=== PATIENT | male | born 1990 | race African-American/Black ===

== ENCOUNTER 2016-07-04 14:11 | Emergency (ER) | payer MEDICAID ==
[~2016-07-04] VITALS: Ht 180.3 cm; Wt 63.5 kg
[2016-07-04 14:14] VITALS: BP 134/84
--- NOTE | 2016-07-04 14:45 | Emergency Room Report ---
History of Present Illness General Chief Complaint: General Complaint Source: Patient Present Illness HPI The patient presents with several complaints. He's increased his workout recently and has muscle pain in his chest and also in his lower back. Worse when he moves. He also feels spasms there. He claims that some over the counter medicines have made him feel worse and more anxious. The pain is also in his lower back and both legs. The sharp pain. Currently the pain is 5/5 - across his chest and bilateral lower back. He believes this started after eating at [employer]. Also is having insomnia and difficulty sleeping. He wakes up was shortness of breath during the night. He was seen at another emergency department and given a prescription for hydroxyzine. He states this medicine made him worse. He denies any stress but states that he has problems sleeping and wakes during the night. During these times he is anxious and gets somewhat short of breath. Will not state what he thinks about at these times. Denies SI or HI. After a bath several nights ago his left leg was numb for a short period of time. This got better. The right leg was normal at that time. This has not repeated since that time. Denies any fevers or chills, cough, NVD, dysuria/change in urine, rashes, change in vision, sore throat. He drives an [employer] car. Denies smoking alcohol or drugs. 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 Reviewed Nursing Documentation: PMH: Agreed, PSxH: Agreed Nursing Documentation-PMH Past Medical History: No Stated History Review of Systems All Other Systems: negative except mentioned in HPI Physical Exam Vital Signs Date Time Temp Pulse Resp B/P Pulse Ox O2 Delivery O2 Flow Rate FiO2 07/04/16 14:14 97.9 75 14 134/84 98 Room Air Sp02 EP Interpretation: reviewed, normal General Appearance: well appearing, no apparent distress, GCS 15, non-toxic, thin Head: normocephalic, atraumatic Eyes: bilateral eye EOMI, bilateral eye PERRL, bilateral eye normal inspection ENT: moist mucus membranes Neck: supple, other - Thyroid normal Respiratory: lungs clear, normal breath sounds, other - some chest wall tenderness (pectoralis muscles) Cardiovascular #1: regular rate, rhythm Cardiovascular #2: 2+ radial (R) Gastrointestinal: normal inspection, normal bowel sounds, non tender, no mass, non-distended, scaphoid Musculoskeletal: gait/station normal, normal range of motion, other - some tenderness in chest and lower back (muscular) Neurologic: alert, oriented x3, ring facer III-XII nml as tested, motor strength/tone normal, DTRs symmetric, sensory intact, cerebellar normal, normal gait Psychiatric: anxious, other - averts gaze most of time Skin: normal inspection, warm/dry Medical Decision Making Diagnostic Impression: Primary Impression: Myalgia Additional Impression: Anxiety ER Course Patient presents with multiple complaints after increasing his workout. Differential includes muscle strain, rhabdomyolysis, anxiety, somatization, electrolyte abnormality, thyroid dysfunction amongst others. I was offering to treat the patient with medication the Motrin and a few Ativan but he wants the testing done at this time. Will check CBC, CMP, urinalysis and drug screen. No risk factors or history for cardiac disease. Patient treated with ibuprofen here. Labs unremarkable. Complicated patient with multiple complaints. Discussed contribution of increased work out. No medical emergency at this time. Patient stable for outpatient observation and treatment. Laboratory Tests Test 07/04/16 14:45 White Blood Count 7.5 K/UL (4.8-10.8) Red Blood Count 4.90 M/UL (4.70-6.10) Hemoglobin 15.1 G/DL (14.2-18.0) Hematocrit 44.1 % (42.0-52.0) Mean Corpuscular Volume 90 FL (80-99) Mean Corpuscular Hemoglobin 30.9 PG (27.0-31.0) Mean Corpuscular Hemoglobin Concent 34.3 G/DL (32.0-36.0) Red Cell Distribution Width 10.9 % (11.6-14.8) L Platelet Count 327 K/UL (150-450) Mean Platelet Volume 8.2 FL (6.5-10.1) Neutrophils (%) (Auto) 59.1 % (45.0-75.0) Lymphocytes (%) (Auto) 31.0 % (20.0-45.0) Monocytes (%) (Auto) 7.0 % (1.0-10.0) Eosinophils (%) (Auto) 0.7 % (0.0-3.0) Basophils (%) (Auto) 2.2 % (0.0-2.0) H Urine Color Pale yellow Urine Appearance Clear Urine pH 6.5 (4.5-8.0) Urine Specific [place] 1.010 (1.005-1.035) Urine Protein Negative (NEGATIVE) Urine Glucose (UA) Negative (NEGATIVE) Urine Ketones Negative (NEGATIVE) Urine Occult Blood Negative (NEGATIVE) Urine Nitrite Negative (NEGATIVE) Urine Bilirubin Negative (NEGATIVE) Urine Urobilinogen Normal MG/DL (0.0-1.0) Urine Leukocyte Esterase Negative (NEGATIVE) Sodium Level 137 mEQ/L (135-145) Potassium Level 4.0 mEQ/L (3.4-4.9) Chloride Level 95 mEQ/L (98-107) L Carbon Dioxide Level 26 mEQ/L (20-30) Anion Gap 16 (5-15) H Blood Urea Nitrogen 11 mg/dL (7-23) Creatinine 0.9 mg/dL (0.7-1.2) Estimate Glomerular Filtration Rate > 60 mL/min (>60) Glucose Level 96 mg/dL (74-106) Calcium Level 9.5 mg/dL (8.6-10.2) Total Bilirubin 0.8 mg/dL (0.0-1.2) Aspartate Amino Transferase (AST) 15 U/L (5-40) Alanine Aminotransferase (ALT) 9 U/L (3-41) Alkaline Phosphatase 62 U/L (40-129) Total Creatine Kinase 110 U/L (38-174) Total Protein 7.4 g/dL (6.6-8.7) Albumin 4.7 g/dL (3.5-5.2) Globulin 2.7 g/dL Albumin/Globulin Ratio 1.7 (1.0-2.7) Thyroid Stimulating Hormone (TSH) 0.589 uIU/mL (0.300-4.500) Urine Opiates Screen Negative (NEGATIVE) Urine Barbiturates Screen Negative (NEGATIVE) Phencyclidine (PCP) Screen Negative (NEGATIVE) Urine Amphetamines Screen Negative (NEGATIVE) Urine Benzodiazepines Screen Negative (NEGATIVE) Urine Cocaine Screen Negative (NEGATIVE) Urine Marijuana (THC) Screen Negative (NEGATIVE) Status: improved Disposition: HOME, SELF-CARE Condition: Stable Scripts Lorazepam* (ATIVAN*) 0.5 Mg Tablet 0.5 MG ORAL THREE TIMES A DAY, #6 TAB Prov: Paco Howell M.D. 07/04/16 Ibuprofen* (MOTRIN*) 600 Mg Tablet 600 MG ORAL Q6H Y for For Pain, #16 TAB Prov: Paco Howell M.D. 07/04/16 Paco Howell M.D. Jul 04, 2016 14:45
[2016-07-04 14:52] LABS: APPEARANCE,URINE CLEAR; KETONES,URINE NEGATIVE (NEGATIVE); LEUKOCYTE ESTERASE ,URINE NEGATIVE (NEGATIVE); NITRITE,URINE NEGATIVE (NEGATIVE); PH,URINE 6.5 (4.5-8.0); PROTEIN,URINE NEGATIVE (NEGATIVE); UROBILINOGEN,URINE NORMAL MG/DL (0.0-1.0)
[2016-07-04 14:53] LABS: BASOPHILS % (AUTO) 2.2 % (0.0-2.0); EOSINOPHILS % (AUTO) 0.7 % (0.0-3.0); MEAN CORPUSCULAR HEMOGLOBIN 30.9 PG (27.0-31.0); MEAN CORPUSCULAR HGB CONC 34.3 G/DL (32.0-36.0); MEAN CORPUSCULAR VOLUME 90 FL (80-99); MEAN PLATELET VOLUME 8.2 FL (6.5-10.1); NEUTROPHILS % (AUTO) 59.1 % (45.0-75.0); PLATELET COUNT 327 K/UL (150-450); RED CELL DISTRIBUTION WIDTH 10.9 % (11.6-14.8); WHITE BLOOD COUNT 7.5 K/UL (4.8-10.8)
[2016-07-04 15:11] LABS: ALANINE AMINOTRANSFERASE 9 U/L (3-41); ALBUMIN/GLOBULIN RATIO 1.7 (1.0-2.7); ANION GAP 16 (5-15); ASPARTATE AMINO TRANSFERASE 15 U/L (5-40); CALCIUM 9.5 mg/dL (8.6-10.2); CARBON DIOXIDE 26 mEQ/L (20-30); CHLORIDE 95 mEQ/L (98-107); CREATININE 0.9 mg/dL (0.7-1.2); GLOMERULAR FILTRATION RATE > 60 mL/min (>60); HEMOLYSIS 8; SODIUM 137 mEQ/L (135-145); TOTAL PROTEIN 7.4 g/dL (6.6-8.7)
[2016-07-04 15:21] LABS: THYROID STIMULATING HORMONE 0.589 uIU/mL (0.300-4.500)
[2016-07-04] MEDS ORDERED: ATIVAN0.5 MG ORAL (16:19)
[2016-07-04] MEDS ORDERED: IBUPROFEN600 MG ORAL (16:19)
== END 2016-07-04 16:30 | disposition home or self-care (01) ==
LOC: EMR 14:55
DX: M79.1 Myalgia (principal); F41.9 Anxiety disorder, unspecified; Z83.3 Family history of diabetes mellitus
CPT/HCPCS: 36415; 80053; 80300; 81003; 82550; 84443; 85025; 99284

== ENCOUNTER 2016-07-23 23:41 | Emergency (ER) | payer MEDICAID ==
[~2016-07-23] VITALS: Ht 180.3 cm; Wt 63.5 kg
[~2016-07-23 23:41] MED LIST: ATIVAN0.5 MG ORAL; IBUPROFEN600 MG ORAL
[2016-07-24 00:10] VITALS: BP 133/88
[2016-07-24] MEDS ORDERED: AMITRIPTYLINE25 MG ORAL (00:18)
--- NOTE | 2016-07-24 00:19 | Emergency Room Report ---
History of Present Illness General Chief Complaint: General Complaint Source: Patient Present Illness HPI Is a 26-year-old male presents with multiple complaints. Initially he said that he has trouble sleeping. Said he sleep but wake up easily and he can't go back to sleep. Most of the time, he complaining of abdominal issues. Said he felt full. However, has not lost any weight. He was here last month for the same thing. Labs are unremarkable. He saw a primary care DrDianelsy and had another set of blood done that was unremarkable. Denies any pain. No vomiting or diarrhea. Denies drugs or alcohol. Denies any psychiatric issue. Allergies: Coded Allergies: No Known Allergies (Unverified , 07/04/16) Patient History Past Medical History: none, see triage record, old chart reviewed Past Surgical History: none Pertinent Family History: none Social History: Denies: smoking Immunizations: other Reviewed Nursing Documentation: PMH: Agreed, PSxH: Agreed Nursing Documentation-PM Past Medical History: No Stated History Review of Systems Eye: Denies: blurred vision, eye pain ENT: Denies: ear pain, nose congestion, throat swelling Respiratory: Denies: cough, shortness of breath Cardiovascular: Denies: chest pain, palpitations Gastrointestinal: Denies: abdominal pain, diarrhea, nausea, vomiting Musculoskeletal: Denies: back pain, joint pain Skin: Denies: rash Neurological: Denies: headache, numbness Endocrine: Denies: increased thirst, increased urine Hematologic/Lymphatic: Denies: easy bruising All Other Systems: negative except mentioned in HPI Physical Exam Vital Signs Date Time Temp Pulse Resp B/P Pulse Ox O2 Delivery O2 Flow Rate FiO2 07/23/16 23:53 98.2 75 18 133/88 99 Room Air vitals normal Sp02 EP Interpretation: reviewed, normal General Appearance: well appearing, no apparent distress, alert Head: normocephalic, atraumatic Eyes: bilateral eye EOMI, bilateral eye PERRL ENT: hearing grossly normal, normal pharynx Neck: full range of motion, supple, no meningismus Respiratory: chest non-tender, lungs clear, normal breath sounds Cardiovascular #1: regular rate, rhythm, no murmur Gastrointestinal: normal bowel sounds, non tender, no mass, no organomegaly, no bruit, non-distended Musculoskeletal: back normal, gait/station normal, normal range of motion Psychiatric: mood/affect normal Skin: warm/dry Medical Decision Making Diagnostic Impression: Primary Impression: Insomnia Qualified Codes: G47.00 - Insomnia, unspecified Additional Impression: Somatization disorder ER Course Patient with multiple complaints. He probably has a psychiatric issue. He has no criteria for 5150. Not suicidal or homicidal. No delusion or hallucination. We'll discharge home. May benefit from psychiatric referral. Last Vital Signs Date Time Temp Pulse Resp B/P Pulse Ox O2 Delivery O2 Flow Rate FiO2 07/23/16 23:53 98.2 75 18 133/88 99 Room Air Status: improved Disposition: HOME, SELF-CARE Condition: Stable Scripts Amitriptyline HCl (ELAVIL*) 25 Mg Tablet 25 MG ORAL BEDTIME, #30 TAB Prov: DAYLIN CUENCA M.D. 07/24/16 Additional Instructions: Followup your Dr. in 2-3 days. You may benefit from referral to see a psychiatrist. Return if symptom worsen. DAYLIN CUENCA M.D. Jul 24, 2016 00:19
[2016-07-24 00:20] VITALS: BP 133/88
== END 2016-07-24 00:20 | disposition home or self-care (01) ==
LOC: EMR 07-24 00:19
DX: G47.00 Insomnia, unspecified (principal); F45.9 Somatoform disorder, unspecified
CPT/HCPCS: 99283

== ENCOUNTER 2016-07-28 11:53 | Emergency (ER) | payer MEDICAID ==
[~2016-07-28] VITALS: Ht 180.3 cm; Wt 63.5 kg
[~2016-07-28 11:53] MED LIST changes: +AMITRIPTYLINE25 MG ORAL
[2016-07-28] MEDS ORDERED: NKM (12:15)
[2016-07-28 12:18] VITALS: BP 120/64
[2016-07-28 12:57] LABS: BASOPHILS % (AUTO) 2.6 % (0.0-2.0); EOSINOPHILS % (AUTO) 1.3 % (0.0-3.0); LYMPHOCYTES % (AUTO) 30.2 % (20.0-45.0); MEAN CORPUSCULAR HEMOGLOBIN 30.5 PG (27.0-31.0); MEAN CORPUSCULAR HGB CONC 33.1 G/DL (32.0-36.0); MEAN CORPUSCULAR VOLUME 92 FL (80-99); MEAN PLATELET VOLUME 10.1 FL (6.5-10.1); MONOCYTES % (AUTO) 6.3 % (1.0-10.0); NEUTROPHILS % (AUTO) 59.6 % (45.0-75.0); PLATELET COUNT 232 K/UL (150-450); RED BLOOD COUNT 5.04 M/UL (4.70-6.10); RED CELL DISTRIBUTION WIDTH 11.1 % (11.6-14.8); WHITE BLOOD COUNT 4.8 K/UL (4.8-10.8)
[2016-07-28 13:07] LABS: ANION GAP 15 (5-15); CALCIUM 9.4 mg/dL (8.6-10.2); CARBON DIOXIDE 26 mEQ/L (20-30); CHLORIDE 97 mEQ/L (98-107); CREATININE 0.9 mg/dL (0.7-1.2); GLOMERULAR FILTRATION RATE > 60 mL/min (>60); HEMOLYSIS 8; SODIUM 138 mEQ/L (135-145)
[2016-07-28 13:39] VITALS: BP 125/76
--- NOTE | 2016-07-28 13:50 | Emergency Room Report ---
History of Present Illness General Chief Complaint: General Complaint Source: Patient Present Illness HPI 26-year-old male presents emergency department stating that he had an episode of feeling lightheaded yesterday but resolved on its own. Patient reports decrease in appetite and states that he has not been drinking as much water denies nausea vomiting. Patient denies palpitations, shortness of breath, syncope, recent trauma or fall. Patient denies recent head injury. Patient denies history of anxiety or thyroid dysfunction patient denies cardiac disorder. Patient does report that a few of his labs from his doctor's office recently were abnormal and brought them with him. Patient reports weight loss estimated at 12 pounds over the course of 2 months. Denies night sweats or chills, denies blood in stool, or black stools. Denies CP, Palpitations, LOC, AMS, dizziness, Changes in Vision, Sensation, paresthesias, or a sudden severe headache. Allergies: Coded Allergies: No Known Allergies (Unverified , 07/04/16) Patient History Past Medical History: see triage record Past Surgical History: none Pertinent Family History: none Immunizations: UTD Reviewed Nursing Documentation: PMH: Agreed, PSxH: Agreed Nursing Documentation-PMH Past Medical History: No Stated History Review of Systems All Other Systems: negative except mentioned in HPI Physical Exam Vital Signs Date Time Temp Pulse Resp B/P Pulse Ox O2 Delivery O2 Flow Rate FiO2 07/28/16 12:09 98.8 82 16 120/64 98 Room Air Sp02 EP Interpretation: reviewed, normal General Appearance: no apparent distress, alert, GCS 15, non-toxic Head: normocephalic, atraumatic Eyes: bilateral eye EOMI, bilateral eye PERRL, bilateral eye normal inspection ENT: hearing grossly normal, normal pharynx, no angioedema, normal voice, TMs + canals normal, uvula midline Neck: full range of motion, no meningismus, no bony tend, supple/symm/no masses Respiratory: chest non-tender, lungs clear, normal breath sounds, speaking full sentences Cardiovascular #1: regular rate, rhythm, no edema Cardiovascular #2: 2+ radial (R), 2+ radial (L) Gastrointestinal: non tender, soft, no guarding, no rebound Rectal: deferred Genitourinary: normal inspection, no CVA tenderness Musculoskeletal: back normal, gait/station normal, normal range of motion, non- tender, no calf tenderness Neurologic: alert, oriented x3, responsive, motor strength/tone normal, sensory intact, speech normal Psychiatric: judgement/insight normal, memory normal, mood/affect normal, no suicidal/homicidal ideation Skin: normal color, no rash, warm/dry, well hydrated Lymphatic: no adenopathy Medical Decision Making PA Attestation Dr. Kelly is my supervising Physician whom patient management has been discussed with. Diagnostic Impression: Primary Impression: Dizziness, nonspecific ER Course 26-year-old male presents emergency department stating that he had an episode of feeling lightheaded yesterday but resolved on its own. Patient reports decrease in appetite and states that he has not been drinking as much water denies nausea vomiting. Patient denies palpitations, shortness of breath, syncope, recent trauma or fall. Patient denies recent head injury. Patient denies history of anxiety or thyroid dysfunction patient denies cardiac disorder. Patient does report that a few of his labs from his doctor's office recently were abnormal and brought them with him. Patient reports weight loss estimated at 12 pounds over the course of 2 months. Denies night sweats or chills, denies blood in stool, or black stools. Ddx considered but are not limited to Mnire's, BPPV, anxiety, palpitations, hypovolemia, dehydration, cardiac cause. Vital signs: are WNL, pt. is afebrile Recent lab work shows mildly decreased TSH. H&PE are most consistent with :possible thyroid dysfunction will r/o dehydration. ORDERS: - CBC: unremarkable no evidence of anemia -CMP: unremarkable no evidence to suggest dehydration ED INTERVENTIONS: -D/W pt. to follow up with PCP for further eval of TSH recommended free T3/T4 levels. DISCHARGE: At this time pt. is stable for d/c to home. Will provide printed patient care instructions, and any necessary prescriptions. Care plan and follow up instructions have been discussed with the patient prior to discharge. Labs Test 07/28/16 12:50 White Blood Count 4.8 K/UL (4.8-10.8) Red Blood Count 5.04 M/UL (4.70-6.10) Hemoglobin 15.4 G/DL (14.2-18.0) Hematocrit 46.4 % (42.0-52.0) Mean Corpuscular Volume 92 FL (80-99) Mean Corpuscular Hemoglobin 30.5 PG (27.0-31.0) Mean Corpuscular Hemoglobin Concent 33.1 G/DL (32.0-36.0) Red Cell Distribution Width 11.1 % (11.6-14.8) Platelet Count 232 K/UL (150-450) Mean Platelet Volume 10.1 FL (6.5-10.1) Neutrophils (%) (Auto) 59.6 % (45.0-75.0) Lymphocytes (%) (Auto) 30.2 % (20.0-45.0) Monocytes (%) (Auto) 6.3 % (1.0-10.0) Eosinophils (%) (Auto) 1.3 % (0.0-3.0) Basophils (%) (Auto) 2.6 % (0.0-2.0) Sodium Level 138 mEQ/L (135-145) Potassium Level 4.0 mEQ/L (3.4-4.9) Chloride Level 97 mEQ/L (98-107) Carbon Dioxide Level 26 mEQ/L (20-30) Anion Gap 15 (5-15) Blood Urea Nitrogen 12 mg/dL (7-23) Creatinine 0.9 mg/dL (0.7-1.2) Estimat Glomerular Filtration Rate > 60 mL/min (>60) Glucose Level 87 mg/dL (74-106) Calcium Level 9.4 mg/dL (8.6-10.2) Last Vital Signs Date Time Temp Pulse Resp B/P Pulse Ox O2 Delivery O2 Flow Rate FiO2 07/28/16 13:39 98.8 79 16 125/76 98 Room Air Disposition: HOME, SELF-CARE Condition: Stable Referrals: NOT CHOSEN IPA/MD,REFERRING (PCP) Patient Instructions: Dizziness, Thyroid-Stimulating Hormone Test Additional Instructions: Take medications as directed. Follow up with PCP in 3-5 days Return sooner to ED if new symptoms occur, or current symptoms become worse. - Please note that this Emergency Department Report was dictated using [employer] technology software, occasionally this can lead to erroneous entry secondary to interpretation by the dictation equipment. Tania Whitley Jul 28, 2016 13:50
== END 2016-07-28 13:52 | disposition home or self-care (01) ==
LOC: EMR 13:13
DX: R42 Dizziness and giddiness (principal)
CPT/HCPCS: 36415; 80048; 85025; 99281

== ENCOUNTER 2016-09-09 18:36 | Emergency (ER) | payer MEDICAID ==
[~2016-09-09] VITALS: Ht 180.3 cm; Wt 62.6 kg
[~2016-09-09 18:36] MED LIST changes: +NKM
[2016-09-09] MEDS ORDERED: AMOXICILLIN500 MG ORAL (19:33)
[2016-09-09 19:56] VITALS: BP_SYST 130; BP_SYST 132; BP_DIAS 71; BP_DIAS 74
--- NOTE | 2016-09-09 20:27 | Emergency Room Report ---
History of Present Illness General Chief Complaint: General Complaint Source: Patient Present Illness HPI The patient is a 26-year-old male presenting for sore throat and difficulty swallowing for the past 2 weeks. He states that he has also had a minor dry cough. He denies any sick contacts or recent travel. He describes pain as a 3/ 10 dull ache to the back of the throat and is worse when he swallows. Pain does not radiate. He denies choking on food or aspirating. He denies any other symptom such as weight loss, N, V, F, chills, SOB, rash, fatigue. Allergies: Coded Allergies: No Known Allergies (Unverified , 07/04/16) Patient History Past Medical History: see triage record Pertinent Family History: none Reviewed Nursing Documentation: PMH: Agreed, PSxH: Agreed Nursing Documentation-PMH Past Medical History: No Stated History Review of Systems All Other Systems: negative except mentioned in HPI Physical Exam Vital Signs Date Time Temp Pulse Resp B/P Pulse Ox O2 Delivery O2 Flow Rate FiO2 09/09/16 18:50 98.1 90 20 130/71 100 Room Air Sp02 EP Interpretation: reviewed, normal General Appearance: no apparent distress, alert, GCS 15, non-toxic Head: normocephalic, atraumatic Eyes: bilateral eye PERRL, bilateral eye normal inspection ENT: hearing grossly normal, no angioedema, normal voice, uvula midline, tonsillar swelling, pharyngeal erythema Neck: normal inspection, full range of motion, supple, thyroid normal, no bony tend, supple/symm/no masses Respiratory: chest non-tender, lungs clear, normal breath sounds, no wheezing, speaking full sentences Musculoskeletal: back normal, gait/station normal, normal range of motion, non- tender Neurologic: alert, oriented x3, responsive, motor strength/tone normal, sensory intact, speech normal Psychiatric: judgement/insight normal, memory normal, mood/affect normal, no suicidal/homicidal ideation Skin: normal color, no rash, warm/dry, well hydrated Lymphatic: adenopathy - cervical Medical Decision Making PA Attestation Dr. Kelly is my supervising physician. Patient management was discussed with my supervising physician Diagnostic Impression: Primary Impression: Pharyngitis, acute Qualified Codes: J02.9 - Acute pharyngitis, unspecified ER Course The patient is a 26-year-old male presenting for sore throat and difficulty swallowing for the past 2 weeks Differential diagnosis include but not limited to pharyngitis, sinusitis, AOM, bronchitis, PNA, thyroiditis, dysmotility Physical exam: Vitals within normal limits. Afebrile. No apparent distress HEENT exam: There is bilateral tonsillar edema, erythema. Uvula midline. Moist mucous membranes. There is bilateral cervical lymphadenopathy. Lungs are clear to auscultation bilaterally Skin is warm and dry. No rash The patient will be discharged home with a prescription for amoxicillin and is given ER precautions. Patient will followup with primary care Last Vital Signs Date Time Temp Pulse Resp B/P Pulse Ox O2 Delivery O2 Flow Rate FiO2 09/09/16 19:56 98.1 20 130/71 100 Room Air 09/09/16 19:56 86 Status: improved Disposition: HOME, SELF-CARE Condition: Improved Scripts Amoxicillin* (AMOXIL*) 500 Mg Capsule 500 MG ORAL Q12HR, #20 CAP Prov: MONSERRAT CALLAHAN 09/09/16 Referrals: NOT CHOSEN IPA/MD,REFERRING (PCP) Patient Instructions: Pharyngitis Additional Instructions: I discussed my findings with the patient. All questions and concerns have been answered. Treatment and medication compliance have been addressed. I advised the patient that they need to follow up with PMD in 3-5 days. Return to ED if pain remains or worsens, cough worsens or remains, you notice blood in your sputum, you notice wheezing, you experience a fever, or if needed for any reason. Patient verbalized understanding of discharge instructions. MONSERRAT CALLAHAN Sep 09, 2016 20:27
== END 2016-09-09 19:57 | disposition home or self-care (01) ==
LOC: EMR 19:21
DX: J02.9 Acute pharyngitis, unspecified (principal)
CPT/HCPCS: 99283

== ENCOUNTER 2016-09-11 13:02 | Emergency (ER) | payer MEDICAID ==
[~2016-09-11] VITALS: Ht 182.9 cm; Wt 54.4 kg
[~2016-09-11 13:02] MED LIST changes: +AMOXICILLIN500 MG ORAL
[2016-09-11] MEDS ORDERED: Lidocaine 1% MPF 10mg/ml 5ml IM ONE (13:30)
--- NOTE | 2016-09-11 14:12 | Emergency Room Report ---
History of Present Illness General Chief Complaint: Skin Rash/Abscess Source: Patient Present Illness HPI 26 YO Male presents to the ED c/o pain, swelling, and erythema of right buttock, and right thigh 10/10 in severity. pt. was seen as another ED two days ago for abscess and was prescribed amoxicillin. pt. states symptoms continue to progress. Patient denies history of immunocompromise or past medical history.pt recently had circumcision performed. Patient denies nausea, vomiting, abdominal pain, itching or rashes. Pt. states he is wearing a diaper, denies incontinence, or pain in the area. Denies CP, Palpitations, LOC, AMS, dizziness, Changes in Vision, Sensation, paresthesias, or a sudden severe headache. pt. states his symptoms began approximately 1 week ago. Allergies: Coded Allergies: No Known Allergies (Unverified , 07/04/16) Patient History Past Medical History: see triage record Past Surgical History: none Pertinent Family History: none Immunizations: UTD Reviewed Nursing Documentation: PMH: Agreed, PSxH: Agreed Nursing Documentation-PMH Past Medical History: No Stated History Review of Systems All Other Systems: negative except mentioned in HPI Physical Exam Vital Signs Date Time Temp Pulse Resp B/P Pulse Ox O2 Delivery O2 Flow Rate FiO2 09/11/16 13:16 98.4 78 16 120/80 99 Room Air Sp02 EP Interpretation: reviewed, normal General Appearance: no apparent distress, alert, GCS 15, non-toxic Head: normocephalic, atraumatic Eyes: bilateral eye PERRL, bilateral eye normal inspection ENT: hearing grossly normal, normal pharynx, no angioedema, normal voice Neck: full range of motion, supple/symm/no masses Respiratory: lungs clear, normal breath sounds, speaking full sentences Cardiovascular #1: regular rate, rhythm, no edema Rectal: deferred Genitourinary: deferred - pt. currently wearign a diaper. Musculoskeletal: back normal, gait/station normal, normal range of motion, other, tender - TTP to the right buttock where abscess is located, no bony ttp, pt. also has ttp to medial right thigh. Neurologic: alert, oriented x3, responsive, motor strength/tone normal, sensory intact, normal gait, speech normal Psychiatric: judgement/insight normal, memory normal, mood/affect normal, no suicidal/homicidal ideation Skin: no rash, warm/dry, well hydrated, other - abscess on the right buttock is 2.5cm indurated with fluctuance palpated. The abscess on thigh is less than 1cm no fluctuance palpated Lymphatic: no adenopathy Procedures Incision and Drainage Incision and Drainage : Consent: Verbal Site: right buttock Blade Size: 11 I & D Procedure: betadine prep Wound Location: other - right buttock Wound's Depth, Shape: into muscle Wound Length (cm): 1 Wound Explored: contaminated - thick purulent drainage was expressed from the incision Irrigated w/ Saline (ccs): 30 Anesthesia: Lidocaine w/ Epi Volume Anesthetic (ccs): 3 Splint Applied?: No Sling Applied?: No Patient Tolerated: Well Complications: None Medical Decision Making PA Attestation Dr. Watts is my supervising Physician whom patient management has been discussed with. Diagnostic Impression: Primary Impression: Abscess ER Course Pt. presents to the ED c/o pain, swelling, and erythema of right buttock, and right thigh 10/10 in severity. pt recently had circumcision performed. pt. was seen as another ED two days ago for abscess and was prescribed amoxicillin... pt. states symptoms continue to progress. Ddx considered but are not limited to cellulitis, abscess, cystic acne, necrotizing fasciitis, insect bite. Vital signs: are WNL, pt. is afebrile H&PE are most consistent with Abscess of multiple sites. abscess on the right buttock is 2.5cm indurated with fluctuance palpated. The abscess on thigh is less than 1cm no fluctuance palpated will defer drainage. ORDERS: none required at this time, the diagnosis is clinical. ED INTERVENTIONS: -I & D. - Tetanus DISCHARGE: At this time pt. is stable for d/c to home. Will provide printed patient care instructions, and any necessary prescriptions. Care plan and follow up instructions have been discussed with the patient prior to discharge. Last Vital Signs Date Time Temp Pulse Resp B/P Pulse Ox O2 Delivery O2 Flow Rate FiO2 09/11/16 13:16 98.4 78 16 120/80 99 Room Air Disposition: HOME, SELF-CARE Condition: Stable Scripts Ibuprofen* (MOTRIN*) 400 Mg Tablet 400 MG ORAL THREE TIMES A DAY, #30 TAB 0 Refills Prov: Tania Whitley.Felipe 09/11/16 Hydrocodone Bit/Acetaminophen 5-325* (NORCO 5-325 TABLET*) 1 Each Tablet 1 TAB ORAL Q6HR Y for For Pain, #9 TAB Prov: Tania Whitley 09/11/16 Doxycycline Hyclate* (VIBRAMYCIN*) 100 Mg Capsule 100 MG ORAL EVERY 12 HOURS for 7 Days, #14 CAP 0 Refills Prov: Tania Whitley 09/11/16 Referrals: NOT CHOSEN IPA/MD,REFERRING (PCP) Patient Instructions: Abscess Additional Instructions: Take medications as directed. Follow up with PCP in 3-5 days Return sooner to ED if new symptoms occur, or current symptoms become worse. Do not drink alcohol, drive, or operate heavy machinery while taking [place] as this may cause drowsiness. - Please note that this Emergency Department Report was dictated using [employer] Technologies[employer]ician aide technology software, occasionally this can lead to erroneous entry secondary to interpretation by the dictation equipment. Tania Whitley Sep 11, 2016 14:12
[2016-09-11] MEDS ORDERED: VIBRAMYCIN100 MG ORAL (14:16)
[2016-09-11] MEDS ORDERED: NORCO 5-325 TA1 EAC1 ORAL (14:16)
[2016-09-11] MEDS ORDERED: IBUPROFEN400 MG ORAL (14:34)
[2016-09-11 14:42] VITALS: BP 116/81
== END 2016-09-11 14:44 | disposition home or self-care (01) ==
LOC: EMR 13:47
DX: L02.31 Cutaneous abscess of buttock (principal)
CPT/HCPCS: 10060

== ENCOUNTER 2016-09-13 19:45 | Emergency (ER) | payer MEDICAID ==
[~2016-09-13] VITALS: Ht 180.3 cm; Wt 63.0 kg
[~2016-09-13 19:45] MED LIST changes: +IBUPROFEN400 MG ORAL; +NORCO 5-325 TA1 EAC1 ORAL; +VIBRAMYCIN100 MG ORAL
[2016-09-13] MEDS ORDERED: AMOXIL250 MG ORAL (20:27)
[2016-09-13 20:35] VITALS: BP 128/82
[2016-09-13 20:58] VITALS: BP 128/82
--- NOTE | 2016-09-14 21:46 | Emergency Room Report ---
History of Present Illness General Chief Complaint: Back Pain-No Injury Source: Patient Present Illness HPI Patient present with complaints of right upper back pain Initially the report states ongoing for the past few days however the patient also is complaining of weight loss Patient reports that he try to gain weight however is not able to Pain in the upper back is in between the shoulder blade and the spinal cord in the right side Denies any fall or trauma denies any chest pain or shortness of breath denies any rash Denies any low back pain Allergies: Coded Allergies: No Known Allergies (Unverified , 09/13/16) Patient History Past Medical History: see triage record Pertinent Family History: none Reviewed Nursing Documentation: PMH: Agreed, PSxH: Agreed Nursing Documentation-PMH Past Medical History: No Stated History Review of Systems All Other Systems: negative except mentioned in HPI Physical Exam Vital Signs Date Time Temp Pulse Resp B/P Pulse Ox O2 Delivery O2 Flow Rate FiO2 09/13/16 20:23 97.3 81 16 131/84 99 Room Air Sp02 EP Interpretation: reviewed, normal General Appearance: well appearing, no apparent distress Head: normocephalic, atraumatic Eyes: bilateral eye EOMI, bilateral eye PERRL ENT: hearing grossly normal, normal pharynx, TMs + canals normal, uvula midline Neck: full range of motion, supple, no meningismus, no bony tend Respiratory: lungs clear, normal breath sounds, no rhonchi, no respiratory distress, no retraction, no accessory muscle use Cardiovascular #1: normal peripheral pulses, regular rate, rhythm, no edema, no gallop, no JVD, no murmur Gastrointestinal: normal bowel sounds, non tender, soft, no mass, no organomegaly, non-distended, no guarding, no hernia, no pulsatile mass, no rebound Genitourinary: no CVA tenderness Musculoskeletal: other - Patient had pinpoint discomfort on the rhomboid area on the right side, mid scapular line, just lateral to the midline of thoracic spine, no obvious masses were palpated Neurologic: oriented x3, responsive, dial maker III-XII nml as tested, motor strength/ tone normal, sensory intact Psychiatric: mood/affect normal Skin: normal color, no rash, warm/dry, palpation normal Lymphatic: normal inspection, no adenopathy Medical Decision Making Diagnostic Impression: Primary Impression: Back pain ER Course While the patient was here he did go over Significant amount of recent workup Patient shows thyroid studies along with blood work At this time differentials such as carcinoma any to be considered however given the patient's age and presentation did not feel emergency imaging was appropriate And the patient is stable for close outpatient followup Last Vital Signs Date Time Temp Pulse Resp B/P Pulse Ox O2 Delivery O2 Flow Rate FiO2 09/13/16 20:58 97.3 76 16 128/82 99 Room Air Status: unchanged Disposition: HOME, SELF-CARE Condition: Stable Referrals: NOT CHOSEN IPA/MD,REFERRING (PCP) Patient Instructions: Back Pain, Adult Additional Instructions: It appears that your physician is ordering the appropriate testing Including the thyroid studies and HIV studies At this time followup with endocrinology might be the best followup for your weight loss The back pain that you have at this time appears to be musculoskeletal, and localized to the right side rhomboid region JOSE ANTONIO MIN D.O. Sep 14, 2016 21:46
== END 2016-09-13 20:58 | disposition home or self-care (01) ==
LOC: EMR 20:46
DX: M54.9 Dorsalgia, unspecified (principal); R63.4 Abnormal weight loss; Z68.1 Body mass index [BMI] 19.9 or less, adult
CPT/HCPCS: 99282

== ENCOUNTER 2016-09-22 19:19 | Emergency (ER) | payer MEDICAID ==
[~2016-09-22] VITALS: Ht 180.3 cm; Wt 61.7 kg
[~2016-09-22 19:19] MED LIST changes: +AMOXIL250 MG ORAL
[2016-09-22] MEDS ORDERED: NKM (19:35)
[2016-09-22] MEDS ORDERED: XANAX1 MG ORAL (20:30)
[2016-09-22 20:36] VITALS: BP 124/82
[2016-09-22 20:37] VITALS: BP 124/82
--- NOTE | 2016-09-22 21:33 | Emergency Room Report ---
History of Present Illness General Chief Complaint: General Complaint Source: Patient Present Illness [facility] The patient is a 26-year-old male who denies any medical history presenting for insomnia. The patient states that he has been feeling various strange symptoms including a cold sensation to the left chest, difficulty swallowing, a rash that disappears within minutes, and difficulty sleeping. He has been seen in this emergency department for similar symptoms in the past. He denies any pain. He denies any other symptoms including N, V, F, chills, SOB, CP, CURTIS, neck pain/stiffness Allergies: Coded Allergies: No Known Allergies (Unverified , 09/22/16) Patient History Past Medical History: see triage record Pertinent Family History: none Reviewed Nursing Documentation: PMH: Agreed, PSxH: Agreed Nursing Documentation-PMH Past Medical History: No Stated History Review of Systems All Other Systems: negative except mentioned in HPI Physical Exam Vital Signs Date Time Temp Pulse Resp B/P Pulse Ox O2 Delivery O2 Flow Rate FiO2 09/22/16 19:28 97.2 81 16 124/82 99 Room Air Sp02 EP Interpretation: reviewed, normal General Appearance: no apparent distress, alert, GCS 15, non-toxic Head: normocephalic, atraumatic Eyes: bilateral eye PERRL, bilateral eye normal inspection ENT: hearing grossly normal, normal pharynx, no angioedema, normal voice Neck: full range of motion, supple/symm/no masses Respiratory: chest non-tender, lungs clear, normal breath sounds, speaking full sentences Cardiovascular #1: regular rate, rhythm, no edema Cardiovascular #2: 2+ carotid (R), 2+ carotid (L), 2+ radial (R), 2+ radial (L) , 2+ dorsalis pedis (R), 2+ dorsalis pedis (L) Gastrointestinal: normal bowel sounds, non tender, soft, non-distended, no guarding, no rebound Rectal: deferred Genitourinary: normal inspection, no CVA tenderness Musculoskeletal: back normal, gait/station normal, normal range of motion, non- tender, calf tenderness Neurologic: alert, oriented x3, responsive, motor strength/tone normal, sensory intact, speech normal Psychiatric: memory normal, other - Thoughts are scattered Reflexes: 3+ bicep (R), 3+ bicep (L), 3+ tricep (R), 3+ tricep (L), 3+ knee (R) , 3+ knee (L) Skin: normal color, no rash, warm/dry, well hydrated Lymphatic: no adenopathy Medical Decision Making PA Attestation Dr. Burt is my supervising physician. Patient management was discussed with my supervising physician Diagnostic Impression: Primary Impression: Anxiety ER Course The patient is a 26-year-old male who denies any medical history presenting for insomnia Differential diagnoses considered but not limited to suicidal ideation, homicidal ideation, depression, anxiety, insomnia PE: No apparent distress. A&Ox4 PERRL. EOMI. Oropharynx is patent. No edema. RRR. No MRG Lungs CTA bilat Abdomen: Normal appearance. Non distended. No ecchymosis. Normal BS. Non TTP. No McBurney point tenderness. No guarding. Skin is warm and dry, no rashes. Chest x-ray is unremarkable. The patient is informed he needs to followup with psychiatrist for further care. He is given a short prescription for xanax. ER precautions given Chest X-Ray Diagnostic Results EP Interpretation: Yes Findings: no consolidation, no effusion, no pneumothorax, no acute cardiopulmonary disease Number of Views: 1 PA Scribe Text I am acting as scribe for my supervising physician. My supervising physician's interpretation of the chest xrays are there is no consolidation, no effusion, no acute cardiopulmonary disease, no pneumothorax Last Vital Signs Date Time Temp Pulse Resp B/P Pulse Ox O2 Delivery O2 Flow Rate FiO2 09/22/16 20:37 97.2 16 124/82 99 Room Air 09/22/16 19:28 81 Status: improved Disposition: HOME, SELF-CARE Condition: Improved Scripts Alprazolam* (XANAX*) 1 Mg Tablet 1 TAB ORAL BEDTIME, #15 TAB 0 Refills Prov: MONSERRAT CALLAHAN P.ADianelys 09/22/16 Referrals: NOT CHOSEN IPA/MD,REFERRING (PCP) Patient Instructions: Generalized Anxiety Disorder Additional Instructions: I discussed my findings with the patient. All questions and concerns have been answered. Treatment and medication compliance have been addressed. I advised the patient that they need to follow up with PMD in 3-5 days. Return to ED if symptoms worsen, new symptoms arise, or if needed for any reason. Patient verbalized understanding of discharge instructions. The patient needs to have psychiatric evaluation as discussed MONSERRAT CALLAHAN September 22, 2016 21:33
--- NOTE | 2016-09-23 10:01 | Diagnostic Imaging Report ---
Indication: Shortness of breath Technique: Single portable AP view of the chest. Findings: Comparison: None. The bones and extra pulmonary soft tissues, cardiomediastinal silhouette, pulmonary vasculature and parenchyma, and pleural surfaces are unremarkable. IMPRESSION: Negative portable AP chest.
== END 2016-09-22 20:30 | disposition home or self-care (01) ==
LOC: EMR 19:55
DX: G47.00 Insomnia, unspecified (principal); F41.9 Anxiety disorder, unspecified
CPT/HCPCS: 71010; 99283

== ENCOUNTER 2016-09-24 05:58 | Emergency (ER) | payer MEDICAID ==
[~2016-09-24] VITALS: Ht 180.3 cm; Wt 61.7 kg
[~2016-09-24 05:58] MED LIST changes: +XANAX1 MG ORAL
[2016-09-24] MEDS ORDERED: BENADRYL25 MG ORAL (06:14)
[2016-09-24 06:16] VITALS: BP 129/76
[2016-09-24 06:29] VITALS: BP 129/76
--- NOTE | 2016-09-24 06:32 | Emergency Room Report ---
History of Present Illness General Chief Complaint: General Complaint Source: Patient Present Illness HPI The patient is a 26 year a-year-old male who presented after increased difficulty sleeping . The patient denied psychiatric problems. He stated that he had been drinking green tea approximately midnight. Patient subsequently began having difficulty sleeping. He denied hearing voices or any racing thoughts. Patient stated that he had having a mild sore throat. He denied any fever. Allergies: Coded Allergies: No Known Allergies (Unverified , 09/22/16) Patient History Reviewed Nursing Documentation: PMH: Agreed, PSxH: Agreed Nursing Documentation-PMH Past Medical History: No Stated History Review of Systems All Other Systems: negative except mentioned in HPI Physical Exam Vital Signs Date Time Temp Pulse Resp B/P Pulse Ox O2 Delivery O2 Flow Rate FiO2 09/24/16 06:01 97.3 78 16 129/76 100 Room Air General Appearance: well appearing, no apparent distress, alert, GCS 15, non- toxic Head: normocephalic, atraumatic ENT: hearing grossly normal, normal voice Neck: full range of motion, supple Respiratory: no respiratory distress, speaking full sentences Cardiovascular #1: normal inspection, regular rate, rhythm, no edema Gastrointestinal: normal inspection Musculoskeletal: normal inspection, back normal, no calf tenderness Neurologic: normal inspection, alert, oriented x3, responsive, normal gait Psychiatric: mood/affect normal Skin: no rash Medical Decision Making Diagnostic Impression: Primary Impression: Insomnia ER Course Patient presented for insomnia. Differential diagnoses include was noted to caffeine ingestion, depression, stimulant intoxication, alcohol withdrawal among others. The patient's history is consistent with caffeine ingestion which is causing the patient's insomnia. Patient is advised to discontinue caffeine use.The patient is advised to follow up with primary care doctor in 1- 2 days. Patient is advised to return if any worsening condition or if any changes in status that are concerning. Last Vital Signs Date Time Temp Pulse Resp B/P Pulse Ox O2 Delivery O2 Flow Rate FiO2 09/24/16 06:16 97.3 81 16 129/76 100 Room Air Status: improved Disposition: HOME, SELF-CARE Condition: Stable Scripts Diphenhydramine Hcl* (BENADRYL*) 25 Mg Capsule 25 MG ORAL Q6H Y for Itching, #14 CAP Prov: Parveen Walter 09/24/16 Patient Instructions: Insomnia Parveen Walter September 24, 2016 06:32
== END 2016-09-24 06:29 | disposition home or self-care (01) ==
LOC: EMR 06:15
DX: G47.00 Insomnia, unspecified (principal)
CPT/HCPCS: 99283

== ENCOUNTER 2016-10-13 18:03 | Emergency (ER) | payer MEDICAID ==
[~2016-10-13] VITALS: Ht 180.3 cm; Wt 61.7 kg
[~2016-10-13 18:03] MED LIST changes: +BENADRYL25 MG ORAL
[2016-10-13] MEDS ORDERED: Bacitracin Oint UD TOPIC ONE ×2 (18:42→18:45)
--- NOTE | 2016-10-13 18:43 | Emergency Room Report ---
History of Present Illness General Chief Complaint: General Complaint Source: Patient Present Illness HPI 26-year-old male presents to the emergency department complaining of itching, and cold feeling to the anterior chest times one week. Patient reports intermittent erythema of a localized area of the skin that has itching. Patient denies fevers, chills, recent travel or ill contacts. Patient also reports erythema and swelling to localized area of the right forearm x3 days. Patient denies itching at the site. he denies rash or lesions elsewhere. Patient denies history of allergies, immunocompromise, or other associated signs or symptoms. Denies CP, Palpitations, LOC, AMS, dizziness, Changes in Vision, Sensation, paresthesias, or a sudden severe headache. Allergies: Coded Allergies: No Known Allergies (Unverified , 09/22/16) Patient History Past Medical History: see triage record, psych hx Past Surgical History: none Pertinent Family History: none Immunizations: UTD Reviewed Nursing Documentation: PMH: Agreed, PSxH: Agreed Nursing Documentation-PMH Past Medical History: No Stated History Review of Systems All Other Systems: negative except mentioned in HPI Physical Exam Vital Signs Date Time Temp Pulse Resp B/P Pulse Ox O2 Delivery O2 Flow Rate FiO2 10/13/16 18:13 99.0 78 16 122/81 98 Room Air Sp02 EP Interpretation: reviewed, normal General Appearance: no apparent distress, alert, GCS 15, non-toxic Head: normocephalic, atraumatic Eyes: bilateral eye PERRL, bilateral eye normal inspection ENT: hearing grossly normal, normal pharynx, no angioedema, normal voice Neck: full range of motion, supple/symm/no masses Respiratory: chest non-tender, lungs clear, normal breath sounds, speaking full sentences, other - rash annular in appearance with excoriations noted to the anterior middle chest, no vessicles, crusting or evidence of infestation. no lesions else where of similar type. Cardiovascular #1: regular rate, rhythm, no edema, normal capillary refill Gastrointestinal: non tender, soft, no guarding, no rebound Rectal: deferred Genitourinary: normal inspection Musculoskeletal: back normal, gait/station normal, normal range of motion, non- tender Neurologic: alert, oriented x3, responsive, motor strength/tone normal, sensory intact, speech normal Psychiatric: judgement/insight normal, memory normal, mood/affect normal Skin: normal color, no rash, warm/dry, well hydrated, rash - rash annular in appearance with excoriations noted to the anterior middle chest, no vessicles, crusting or evidence of infestation. no lesions else where of similar type. , other - 0.5 cm abscess that is draining with 1cm of surrounding erythema to the right forearm , no streaking noted. Lymphatic: no adenopathy Medical Decision Making PA Attestation Dr. Kelly is my supervising Physician whom patient management has been discussed with. Diagnostic Impression: Primary Impression: Abscess Additional Impression: Rash and nonspecific skin eruption ER Course 26-year-old male presents to the emergency department complaining of itching, and cold feeling to the anterior chest times one week. Patient reports intermittent erythema of a localized area of the skin that has itching. Patient denies fevers, chills, recent travel or ill contacts. Patient also reports erythema and swelling to localized area of the right forearm x3 days. Patient denies itching at the site. he denies rash or lesions elsewhere. Patient denies history of allergies, immunocompromise, or other associated signs or symptoms. Ddx considered but are not limited to cellulitis, abscess, cystic acne, necrotizing fasciitis, insect bite, tinea, eczema, dermatitis Vital signs: are WNL, pt. is afebrile H&PE are most consistent with abscess and cellulitis of the right forearm, with suspicious tinea type rash of the anterior chest. ORDERS: none required at this time, the diagnosis is clinical ED INTERVENTIONS: -abscess is cleaned, and bacitracin and sterile dressing is applied by RN. DISCHARGE: At this time pt. is stable for d/c to home. Will provide printed patient care instructions, and any necessary prescriptions. Care plan and follow up instructions have been discussed with the patient prior to discharge. Last Vital Signs Date Time Temp Pulse Resp B/P Pulse Ox O2 Delivery O2 Flow Rate FiO2 10/13/16 18:13 99.0 78 16 122/81 98 Room Air Disposition: HOME, SELF-CARE Condition: Stable Scripts Hydrocortisone 2% Cream (ANTI-ITCH 2% CREAM) Y Cr 1 APPLIC TP BID, #28 GM Prov: Tania Whitley P.A. 10/13/16 Terbinafine Hcl (LAMISIL AT) 12 Gm Gel..gram. 1 APPLIC TP BID for 10 Days, #12 GM Prov: Tania Whitley 10/13/16 Doxycycline Hyclate* (VIBRAMYCIN*) 100 Mg Capsule 100 MG ORAL EVERY 12 HOURS for 7 Days, #14 CAP 0 Refills Prov: Tania Whitley 10/13/16 Patient Instructions: Abscess, [id number], Rash Additional Instructions: Take medications as directed. Follow up with PCP or concept artist in 3-5 days Return sooner to ED if new symptoms occur, or current symptoms become worse. - Please note that this Emergency Department Report was dictated using [employer] inspector technology software, occasionally this can lead to erroneous entry secondary to interpretation by the dictation equipment. Tania Whitley October 13, 2016 18:43
[2016-10-13] MEDS ORDERED: VIBRAMYCIN100 MG ORAL (18:45)
[2016-10-13] MEDS ORDERED: ANTI-ITCH28 G1 TP (18:45)
[2016-10-13] MEDS ORDERED: LAMISIL AT12 GM TP (18:45)
[2016-10-13 18:49] VITALS: BP 122/81
== END 2016-10-13 18:49 | disposition home or self-care (01) ==
LOC: EMR 18:40
DX: L02.413 Cutaneous abscess of right upper limb (principal); R21 Rash and other nonspecific skin eruption
CPT/HCPCS: 99284

== ENCOUNTER 2017-03-02 21:24 | Emergency (ER) | payer MEDICAID ==
[~2017-03-02] VITALS: Ht 177.8 cm; Wt 61.2 kg
[~2017-03-02 21:24] MED LIST changes: +ANTI-ITCH28 G1 TP; +LAMISIL AT12 GM TP
[2017-03-02 21:49] VITALS: BP 129/82
[2017-03-02] MEDS ORDERED: IBUPROFEN600 MG ORAL (21:51)
--- NOTE | 2017-03-02 21:52 | Emergency Room Report ---
History of Present Illness General Chief Complaint: Pain Source: Patient Present Illness HPI This is a 26-year-old male who is right-hand dominant. He presents with chief complaint of left shoulder pain. No trauma. 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 Since then he complaining of shoulder neck pain. No fever chills but no nausea no vomiting. No trauma. Worse with movement. Has not anything for it. Also complained of some mild sore throat. He felt that his throat was swollen. No runny nose or congestion. No problem with eating or drinking. Allergies: Coded Allergies: No Known Allergies (Unverified , 09/22/16) Patient History Past Medical History: see triage record, old chart reviewed Past Surgical History: none Pertinent Family History: none Social History: Denies: smoking Immunizations: other Reviewed Nursing Documentation: PMH: Agreed, PSxH: Agreed Nursing Documentation-PMH Past Medical History: No Stated History History Of Psychiatric Problem: No Review of Systems Eye: Denies: eye pain, blurred vision ENT: Denies: ear pain, nose congestion, throat swelling Respiratory: Denies: cough, shortness of breath Cardiovascular: Denies: chest pain, palpitations Gastrointestinal: Denies: abdominal pain, diarrhea, nausea, vomiting Musculoskeletal: Reports: joint pain, muscle pain, Denies: back pain Skin: Denies: rash Neurological: Denies: headache, numbness Endocrine: Denies: increased thirst, increased urine Hematologic/Lymphatic: Denies: easy bruising All Other Systems: negative except mentioned in HPI Physical Exam Vital Signs Date Time Temp Pulse Resp B/P (MAP) Pulse Ox O2 Delivery O2 Flow Rate FiO2 03/02/17 21:33 97.9 82 16 129/82 99 Room Air vitals normal Sp02 EP Interpretation: reviewed, normal General Appearance: well appearing, no apparent distress, alert Head: normocephalic, atraumatic Eyes: bilateral eye PERRL, bilateral eye EOMI ENT: hearing grossly normal, normal pharynx Neck: full range of motion, supple, no meningismus Respiratory: chest non-tender, lungs clear, normal breath sounds Cardiovascular #1: regular rate, rhythm, no murmur Gastrointestinal: normal bowel sounds, non tender, no mass, no organomegaly, no bruit, non-distended Musculoskeletal: back normal, gait/station normal, normal range of motion, other - Left shoulder: Full range of motion. Mild tenderness over the upper scapular trapezius area. Psychiatric: mood/affect normal Skin: warm/dry Medical Decision Making Diagnostic Impression: Primary Impression: Left shoulder strain Qualified Codes: S46.912A - Strain of unspecified muscle, fascia and tendon at shoulder and upper arm level, left arm, initial encounter Additional Impression: Sorethroat ER Course Patient with mild soft tissue strain from work. No fracture dislocation. I see no need for x-rays. We'll discharge him. Last Vital Signs Date Time Temp Pulse Resp B/P (MAP) Pulse Ox O2 Delivery O2 Flow Rate FiO2 03/02/17 21:33 97.9 82 16 129/82 99 Room Air Status: improved Disposition: HOME, SELF-CARE Condition: Stable Scripts Ibuprofen* (MOTRIN*) 600 Mg Tablet 600 MG ORAL Q8H Y for For Pain, #30 TAB 0 Refills Prov: DAYLIN CUENCA M.D. 03/02/17 Additional Instructions: Followup with your DrDianelys in 7 days. Return if symptom worsen. DAYLIN CUENCA M.D. Mar 02, 2017 21:52
[2017-03-02 22:02] VITALS: BP 144/82
== END 2017-03-02 22:04 | disposition home or self-care (01) ==
LOC: EMR 21:46
DX: S46.912A Strain of unspecified muscle, fascia and tendon at shoulder and upper arm level, left arm, initial encounter (principal); X58.XXXA Exposure to other specified factors, initial encounter; Y92.89 Other specified places as the place of occurrence of the external cause; J02.9 Acute pharyngitis, unspecified
CPT/HCPCS: 99283

== ENCOUNTER 2017-03-13 02:20 | Emergency (ER) | payer MEDICAID ==
[~2017-03-13] VITALS: Ht 180.3 cm; Wt 59.0 kg
[2017-03-13] MEDS ORDERED: IBUPROFEN600 MG ORAL (02:53)
[2017-03-13] MEDS ORDERED: CYCLOBENZAPRINE10 MG ORAL (02:53)
[2017-03-13 03:10] VITALS: BP 126/85
--- NOTE | 2017-03-13 04:40 | Emergency Room Report ---
History of Present Illness General Chief Complaint: Pain Source: Patient Present Illness HPI 26-year-old male presents ED complaining of back pain and neck pain. Patient states symptoms started last night. Denies trauma. Notes pain in his mid upper back, 5 at 10, throbbing, nonradiating. Also complaining of neck discomfort and swelling. Denies any fevers or chills. Denies any difficulty swallowing. No other aggravating relieving factors. Denies any other associated symptoms Allergies: Coded Allergies: DOXYCYCLINE (Verified Allergy, Unknown, 03/13/17) Patient History Past Medical History: none Past Surgical History: none Pertinent Family History: none Social History: Denies: smoking, alcohol use, drug use Immunizations: UTD Reviewed Nursing Documentation: PMH: Agreed, PSxH: Agreed Review of Systems All Other Systems: negative except mentioned in HPI Physical Exam Vital Signs Date Time Temp Pulse Resp B/P (MAP) Pulse Ox O2 Delivery O2 Flow Rate FiO2 03/13/17 02:24 97.5 66 18 126/85 98 Room Air Sp02 EP Interpretation: reviewed, normal General Appearance: no apparent distress, alert, GCS 15, non-toxic Head: normocephalic, atraumatic Eyes: bilateral eye normal inspection, bilateral eye PERRL ENT: hearing grossly normal, normal pharynx, no angioedema, normal voice Neck: full range of motion, supple, no meningismus, supple/symm/no masses Respiratory: normal inspection, speaking full sentences Cardiovascular #1: normal inspection Gastrointestinal: normal inspection Rectal: deferred Genitourinary: no CVA tenderness, no vertebral tenderness, other - paraspinal thoracic pain Musculoskeletal: normal inspection Neurologic: alert, oriented x3, responsive, motor strength/tone normal, sensory intact, speech normal Psychiatric: normal inspection Skin: normal inspection Lymphatic: no adenopathy Medical Decision Making Diagnostic Impression: Primary Impression: Back pain Qualified Codes: M54.6 - Pain in thoracic spine Additional Impression: Anxiety ER Course Hospital Course 26-year-old male presents ED complaining of mid back pain. no trauma. c/o neck pain Differential diagnoses include: pyelonephritis, kidney stone, muscle strain, Lspine fracture Clinical course Patient placed on stretcher. After initial history is exam reveals a young male in no acute distress. There is no vertebral body tenderness. There is some paraspinal thoracic pain. This to a muscle strain. Patient is also noted some throat discomfort. There is no pharyngeal erythema. There is no stridor. There is no palpable neck pain. I reviewed EMR patient has been here multiple times for various complaints. On several visits patient has noted the same neck discomfort. recommend patient followup with ENT as outpatient given motrin in ED with pain improved Diagnosis - back pain, anxiety Stable and discharged to home with prescription for Motrin, Flexeril. Followup with PMD. Return to ED if symptoms recur or worsen Last Vital Signs Date Time Temp Pulse Resp B/P (MAP) Pulse Ox O2 Delivery O2 Flow Rate FiO2 03/13/17 03:10 66 18 126/85 98 Room Air 03/13/17 03:10 97.5 Status: improved Disposition: HOME, SELF-CARE Condition: Stable Scripts Cyclobenzaprine Hcl* (FLEXERIL*) 10 Mg Tablet 10 MG ORAL TID Y for Muscle Spasm, #20 TAB Prov: YAMILETH JONES M.D. 03/13/17 Ibuprofen* (MOTRIN*) 600 Mg Tablet 600 MG ORAL Q8H Y for For Pain, #30 TAB 0 Refills Prov: YAMILETH JONES M.D. 03/13/17 Referrals: NOT CHOSEN IPA/,REFERRING (PCP) Patient Instructions: Back Pain, Adult, [id number] YAMILETH JONES M.D. Mar 13, 2017 04:40
== END 2017-03-13 03:10 | disposition home or self-care (01) ==
LOC: EMR 02:45
DX: M54.9 Dorsalgia, unspecified (principal); F41.9 Anxiety disorder, unspecified; M54.2 Cervicalgia
CPT/HCPCS: 99283

== ENCOUNTER 2017-03-16 02:56 | Emergency (ER) | payer MEDICAID ==
[~2017-03-16] VITALS: Ht 180.3 cm; Wt 59.9 kg
[~2017-03-16 02:56] MED LIST changes: +CYCLOBENZAPRINE10 MG ORAL
--- NOTE | 2017-03-16 04:21 | Emergency Room Report ---
History of Present Illness General Chief Complaint: Neck Pain Present Illness HPI Patient is a a 26-year-old male who presented to increased foreign body sensation to his neck. Patient reported having some difficulty after eating. He denies eating anything sharp. He had not been having any vomiting or diarrhea. Patient been able to take liquids. Allergies: Coded Allergies: DOXYCYCLINE (Verified Allergy, Unknown, 03/13/17) Patient History Past Medical History: see triage record Reviewed Nursing Documentation: PMH: Agreed, PSxH: Agreed Review of Systems All Other Systems: negative except mentioned in HPI Physical Exam Vital Signs Date Time Temp Pulse Resp B/P (MAP) Pulse Ox O2 Delivery O2 Flow Rate FiO2 03/16/17 03:03 97.3 66 18 121/79 100 Room Air General Appearance: well appearing, no apparent distress, alert, GCS 15, non- toxic Head: normocephalic, atraumatic ENT: hearing grossly normal, normal voice Neck: full range of motion, supple Respiratory: no respiratory distress, no accessory muscle use, speaking full sentences Cardiovascular #1: normal inspection, regular rate, rhythm Gastrointestinal: normal inspection, soft Musculoskeletal: no calf tenderness Neurologic: normal gait Psychiatric: mood/affect normal Skin: no rash Medical Decision Making Diagnostic Impression: Primary Impression: Foreign body sensation in throat ER Course Patient presented for foreign body sensation. Differential diagnosis included but was not limited to meningitis, exudative tonsillitis, retropharyngeal abscess, epiglottitis, strep pharyngitis. Patient's benign exam and does not appear to require any laboratory testing at this time. X-ray imaging of the neck two-view showed normal prevertebral soft tissue as well as no evident lung infiltrate or pneumothorax or pneumomediastinum. Last Vital Signs Date Time Temp Pulse Resp B/P (MAP) Pulse Ox O2 Delivery O2 Flow Rate FiO2 03/16/17 03:03 97.3 66 18 121/79 100 Room Air Status: improved Disposition: HOME, SELF-CARE Condition: Stable Patient Instructions: Parveen Araiza Mar 16, 2017 04:21
[2017-03-16 04:22] VITALS: BP 121/79
--- NOTE | 2017-03-16 11:27 | Diagnostic Imaging Report ---
Indication: SOB Technique: One view of the chest Comparison: 09/22/2016 Findings: Lungs and pleural spaces are clear. Heart size is normal. Impression: No acute process
--- NOTE | 2017-03-16 11:27 | Diagnostic Imaging Report ---
Indication: PAIN Technique: 2 views of the neck with soft tissue technique Comparison: None Findings: No prevertebral soft tissue swelling, epiglottic swelling, hypopharyngeal distention, or glottic narrowing demonstrated. No radiopaque foreign body. The bones are unremarkable Impression: Negative
== END 2017-03-16 04:20 | disposition home or self-care (01) ==
LOC: EMR 03:25
DX: R09.89 Other specified symptoms and signs involving the circulatory and respiratory systems (principal); R06.02 Shortness of breath
CPT/HCPCS: 70360; 71010; 99284

== ENCOUNTER 2017-06-07 01:56 | Emergency (ER) | payer MEDICAID ==
[~2017-06-07] VITALS: Ht 180.3 cm; Wt 59.0 kg
[2017-06-07 02:20] VITALS: BP 125/82
[2017-06-07] MEDS ORDERED: Dicyclomine HCl 10mg/5ml oral soln ORAL ONE (02:30)
[2017-06-07] MEDS ORDERED: Mylanta II UD 30ml ORAL ONE (02:30)
--- NOTE | 2017-06-07 02:31 | Emergency Room Report ---
History of Present Illness General Chief Complaint: Chest Pain Source: Patient Present Illness HPI Patient presents with complaints of discomfort to the mid epigastric mid esophageal area Initially describes as chest pain patient reports that around 8:00 tonight eating a kale salad The was several toppings including different fruits and nuts on that salad Around midnight before going to sleep he felt some sharp discomfort in pressure in the epigastric and superior that area Denies any vomiting or diarrhea denies any shortness of breath Denies any cough Allergies: Coded Allergies: DOXYCYCLINE (Verified Allergy, Unknown, 03/13/17) Patient History Past Medical History: see triage record Pertinent Family History: none Reviewed Nursing Documentation: PMH: Agreed, PSxH: Agreed Review of Systems All Other Systems: negative except mentioned in HPI Physical Exam Vital Signs Date Time Temp Pulse Resp B/P (MAP) Pulse Ox O2 Delivery O2 Flow Rate FiO2 06/07/17 01:59 98.1 65 18 125/82 98 Room Air Sp02 EP Interpretation: reviewed, normal General Appearance: well appearing, no apparent distress Head: normocephalic, atraumatic Eyes: bilateral eye PERRL, bilateral eye EOMI ENT: hearing grossly normal, normal pharynx, TMs + canals normal, uvula midline Neck: full range of motion, supple, no meningismus, no bony tend Respiratory: lungs clear, normal breath sounds, no rhonchi, no respiratory distress, no retraction, no accessory muscle use Cardiovascular #1: normal peripheral pulses, regular rate, rhythm, no edema, no gallop, no JVD, no murmur Gastrointestinal: normal bowel sounds, non tender, soft, no mass, no organomegaly, non-distended, no guarding, no hernia, no pulsatile mass, no rebound Genitourinary: no CVA tenderness Musculoskeletal: normal inspection Neurologic: oriented x3, responsive, institutional cook III-XII nml as tested, motor strength/ tone normal, sensory intact Psychiatric: mood/affect normal Skin: normal color, no rash, warm/dry, palpation normal Lymphatic: normal inspection, no adenopathy Medical Decision Making Diagnostic Impression: Primary Impression: Chest pain ER Course Multiple differentials considered Including but not limited to cardiac, cardiopulmonary gastrointestinal pathology Source appears to be epigastric and likely distal esophageal in nature EKG is normal Patient had several x-rays from previous presentation and lung sounds are appropriate there for I did not want to expose the patient to further radiation Patient was provided with GI cocktail for epigastric discomfort and is stable for close outpatient followup , EKG Diagnostic Results Rate: normal Rhythm: NSR ST Segments: no acute changes Rhythm Strip Diag. Results EP Interpretation: yes Rate: 67 Rhythm: NSR, no PVC's, no ectopy Last Vital Signs Date Time Temp Pulse Resp B/P (MAP) Pulse Ox O2 Delivery O2 Flow Rate FiO2 06/07/17 01:59 98.1 65 18 125/82 98 Room Air Status: improved Disposition: HOME, SELF-CARE Condition: Stable Referrals: NON PHYSICIAN (PCP) Additional Instructions: Patient is provided with the discharge instructions notified to follow up with primary doctor in the next 2-3 days otherwise return to the er with any worsening symptoms. Please note that this report is being documented using [employer] technology. This can lead to erroneous entry secondary to incorrect interpretation by the dictating instrument. JOSE ANTONIO MIN D.O. Jun 07, 2017 02:31
[2017-06-07 02:55] VITALS: BP 125/82
--- NOTE | 2017-06-07 17:44 | Cardiology Report ---
APPROVED REPORT EKG Measurement Heart [id number] Normal sinus rhythm Normal ECG
== END 2017-06-07 02:55 | disposition home or self-care (01) ==
LOC: EMR 02:15
DX: R07.9 Chest pain, unspecified (principal); Z88.1 Allergy status to other antibiotic agents
CPT/HCPCS: 93005; 99283

== ENCOUNTER 2018-07-02 01:02 | Emergency (ER) | payer MEDICAID ==
[~2018-07-02] VITALS: Ht 177.8 cm; Wt 56.7 kg
[2018-07-02 01:20] VITALS: BP 121/83
[2018-07-02] MEDS ORDERED: NKM (01:20)
--- NOTE | 2018-07-02 01:20 | NUR ---
ED Nurse Note: patient ambulated to ED c/ RLQ abdominal pain x1 week. patient states pain started after exercise, patient rates his pain a 8/10 pain that radiates to his right lower leg
--- NOTE | 2018-07-02 01:37 | Emergency Room Report ---
History of Present Illness General Chief Complaint: Abdominal Pain Source: Patient Present Illness HPI Patient presents with several days of right lower quadrant and upper right leg pain. This is worsened when he is working out and also when he is bending over. He denies fever, nausea, vomiting, diarrhea, dysuria or testicular pain. He's not taking any medication for this. The pain is rated 9/10 aching. No rash. No chest pain, palpitations, shortness of breath, depression, visual changes, headache upper respiratory symptoms. 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 Nursing Documentation: PMH: Agreed; PSxH: Agreed Nursing Documentation-PMH Past Medical History: No History, Except For Review of Systems All Other Systems: negative except mentioned in HPI Physical Exam Vital Signs Date Time Temp Pulse Resp B/P (MAP) Pulse Ox O2 Delivery O2 Flow Rate FiO2 07/02/18 01:14 97.9 82 14 121/83 98 Room Air Sp02 EP Interpretation: reviewed, normal General Appearance: well appearing, no apparent distress, GCS 15 Head: normocephalic, atraumatic Eyes: bilateral eye normal inspection, bilateral eye PERRL ENT: moist mucus membranes Neck: supple Respiratory: lungs clear, normal breath sounds Cardiovascular #1: regular rate, rhythm Cardiovascular #2: 2+ radial (R) Gastrointestinal: normal bowel sounds, non-distended, no guarding, no hernia, no rebound, tenderness Genitourinary: no CVA tenderness, scrotum normal Musculoskeletal: back normal, gait/station normal, normal range of motion Neurologic: alert, oriented x3, grossly normal Psychiatric: mood/affect normal Skin: normal inspection, warm/dry Medical Decision Making Diagnostic Impression: Primary Impression: Right groin pain Additional Impression: Right lower quadrant abdominal pain ER Course Patient presents with right lower quadrant right flank pain for several days. Based on exam hernia is excluded. Also he is afebrile and the course make appendicitis less likely. Urinalysis needs to be checked. In addition to that the patient will be given Motrin. Other considerations are possible kidney stone or UTI. No blood work or imaging studies needed at this time. He is requesting liquid medicine because he believes it works better for him. Urinalysis unremarkable. Patient improved with treatment. Patient stable for outpatient observation and treatment Laboratory Tests Test 07/02/18 01:45 Urine Color Yellow Urine Appearance Clear Urine pH 5 (4.5-8.0) Urine Specific [place] 1.025 (1.005-1.035) Urine Protein Negative (NEGATIVE) Urine Glucose (UA) Negative (NEGATIVE) Urine Ketones 1+ (NEGATIVE) H Urine Blood Negative (NEGATIVE) Urine Nitrite Negative (NEGATIVE) Urine Bilirubin 1+ (NEGATIVE) H Urine Ictotest Negative (NEGATIVE) Urine Urobilinogen Normal MG/DL (0.0-1.0) Urine Leukocyte Esterase 1+ (NEGATIVE) H Urine RBC 0-2 /HPF (0 - 0) H Urine WBC 0-2 /HPF (0 - 0) Urine Squamous Epithelial Cells None /LPF (NONE/OCC) Urine Bacteria None /HPF (NONE) Last Vital Signs Date Time Temp Pulse Resp B/P (MAP) Pulse Ox O2 Delivery O2 Flow Rate FiO2 07/02/18 02:49 97.8 70 14 118/80 98 Room Air Status: improved Disposition: HOME, SELF-CARE Condition: Improved Scripts Ibuprofen* (MOTRIN*) 100 Mg/5 Ml Oral.susp 30 ML ORAL Q6HR PRN for For Pain, #240 ML 0 Refills Prov: Paco Howell MD 07/02/18 Referrals: NON PHYSICIAN (PCP) Paco Howell MD Jul 02, 2018 01:37
--- NOTE | 2018-07-02 01:47 | NUR ---
ED Nurse Note: Patient states that he is unable to take pills, Dr. Howell notified
[2018-07-02 01:53] LABS: APPEARANCE,URINE CLEAR; BILIRUBIN, URINE 1+ (NEGATIVE); GLUCOSE, URINE (UA) NEGATIVE (NEGATIVE); KETONES,URINE 1+ (NEGATIVE); LEUKOCYTE ESTERASE ,URINE 1+ (NEGATIVE); NITRITE,URINE NEGATIVE (NEGATIVE); PH,URINE 5 (4.5-8.0); PROTEIN,URINE NEGATIVE (NEGATIVE); UROBILINOGEN,URINE NORMAL MG/DL (0.0-1.0)
[2018-07-02 01:59] LABS: COLOR,URINE YELLOW
[2018-07-02] MEDS ORDERED: Ibuprofen Susp 100mg/5ml ORAL ONE (02:00)
[2018-07-02] MEDS ORDERED: IBUPROFEN100 MG/5 M ORAL (02:36)
--- NOTE | 2018-07-02 02:45 | NUR ---
ED Nurse Note: Pt cleared DC by Dr. Howell. Pt is A/Ox4, VSS, DC instruction and prescriptions given, pt verbalized understanding. ID wristband removed. All belongings given to pt. Pt ambulated out of ER with steady gait.
[2018-07-02 02:49] VITALS: BP 118/80
== END 2018-07-02 02:50 | disposition home or self-care (01) ==
LOC: EMR 01:26
DX: R10.31 Right lower quadrant pain (principal)
CPT/HCPCS: 81003; 99283

== ENCOUNTER 2018-09-26 00:41 | Emergency (ER) | payer MEDICAID ==
[~2018-09-26] VITALS: Ht 180.3 cm; Wt 59.0 kg
[~2018-09-26 00:41] MED LIST changes: +IBUPROFEN100 MG/5 M ORAL
[2018-09-26] MEDS ORDERED: NKM (00:50)
--- NOTE | 2018-09-26 00:57 | NUR ---
ED Nurse Note: Walk-in patient presents with complaints of palpitations at rest, difficulty sleeping, and increased feeling of cold.
[2018-09-26 01:05] VITALS: BP 113/73
--- NOTE | 2018-09-26 01:09 | Emergency Room Report ---
History of Present Illness General Chief Complaint: Palpitations Source: Patient Present Illness [facility] This is a 28-year-old male with no past medical history. He presents with chief complaint of palpitation. Onset for about a week now. Worse at night. He said that he can't follow sleep because he felt heart beating fast as palpitation. He felt short of breath and cold. Worse with movement. No fever chills but no cough or congestion. Denies any other complaint. Allergies: Coded Allergies: DOXYCYCLINE (Verified Allergy, Unknown, 03/13/17) Patient History Past Medical History: none, see triage record, old chart reviewed Past Surgical History: none Pertinent Family History: none Social History: Denies: smoking Immunizations: other Reviewed Nursing Documentation: PMH: Agreed; PSxH: Agreed Nursing Documentation-PMH Past Medical History: No History, Except For Review of Systems Eye: Denies: eye pain, blurred vision ENT: Denies: ear pain, nose congestion, throat swelling Respiratory: Denies: cough, shortness of breath Cardiovascular: Reports: palpitations; Denies: chest pain Gastrointestinal: Denies: abdominal pain, diarrhea, nausea, vomiting Musculoskeletal: Denies: back pain, joint pain Skin: Denies: rash Neurological: Denies: headache, numbness Endocrine: Denies: increased thirst, increased urine Hematologic/Lymphatic: Denies: easy bruising All Other Systems: negative except mentioned in HPI Physical Exam Vital Signs Date Time Temp Pulse Resp B/P (MAP) Pulse Ox O2 Delivery O2 Flow Rate FiO2 09/26/18 00:45 98.2 92 14 96 Room Air vitals normal Sp02 EP Interpretation: reviewed, normal General Appearance: well appearing, no apparent distress, alert Head: normocephalic, atraumatic Eyes: bilateral eye PERRL, bilateral eye EOMI ENT: hearing grossly normal, normal pharynx Neck: full range of motion, supple, no meningismus Respiratory: chest non-tender, lungs clear, normal breath sounds Cardiovascular #1: regular rate, rhythm, no murmur Gastrointestinal: normal bowel sounds, non tender, no mass, no organomegaly, no bruit, non-distended Musculoskeletal: back normal, gait/station normal, normal range of motion Psychiatric: mood/affect normal Skin: warm/dry Medical Decision Making Diagnostic Impression: Primary Impression: Palpitations ER Course Patient with palpitation. Most likely psychogenic in nature. EKG is normal. No evidence of ACS, PE, dissection to name a few. We'll discharge home. EKG Diagnostic Results Rate: normal Rhythm: NSR ST Segments: no acute changes Rhythm Strip Diag. Results EP Interpretation: yes Rate: 86 Rhythm: NSR, no PVC's, no ectopy Last Vital Signs Date Time Temp Pulse Resp B/P (MAP) Pulse Ox O2 Delivery O2 Flow Rate FiO2 09/26/18 00:45 98.2 92 14 96 Room Air Status: improved Disposition: HOME, SELF-CARE Condition: Stable Patient Instructions: Palpitations Additional Instructions: Follow-up with your doctor in 7 days. Return if symptom worsen. Jose R Jeter MD September 26, 2018 01:09
[2018-09-26 01:33] LABS: BASOPHILS % (AUTO) 1.7 % (0.0-2.0); EOSINOPHILS % (AUTO) 1.3 % (0.0-3.0); HEMATOCRIT 40.5 % (42.0-52.0); LYMPHOCYTES % (AUTO) 30.9 % (20.0-45.0); MEAN CORPUSCULAR VOLUME 95 FL (80-99); MONOCYTES % (AUTO) 6.1 % (1.0-10.0); PLATELET COUNT 236 K/UL (150-450); RED BLOOD COUNT 4.27 M/UL (4.70-6.10); RED CELL DISTRIBUTION WIDTH 12.2 % (11.6-14.8); WHITE BLOOD COUNT 6.9 K/UL (4.8-10.8)
[2018-09-26 01:44] LABS: ANION GAP 7 mmol/L (5-15); BLOOD UREA NITROGEN 20 mg/dL (7-18); CALCIUM 8.8 MG/DL (8.5-10.1); CARBON DIOXIDE 28 MMOL/L (21-32); CHLORIDE 105 MMOL/L (98-107); CREATININE 0.8 MG/DL (0.55-1.30); POTASSIUM 4.1 MMOL/L (3.5-5.1); SODIUM 140 MMOL/L (136-145)
--- NOTE | 2018-09-26 02:02 | NUR ---
ED Nurse Note: Patient cleared for discharge, verbalized understanding of discharge instructions and departed with allh is belongings. Patient was A&Ox4, no s/s of acute distress.
[2018-09-26 02:03] VITALS: BP 113/73
--- NOTE | 2018-09-26 11:09 | Cardiology Report ---
APPROVED REPORT EKG Measurement Heart [id number] Normal sinus rhythm Possible Left atrial enlargement Borderline ECG
== END 2018-09-26 02:04 | disposition home or self-care (01) ==
LOC: EMR 01:27
DX: R00.2 Palpitations (principal); R06.02 Shortness of breath; Z88.8 Allergy status to other drugs, medicaments and biological substances
CPT/HCPCS: 36415; 80048; 85025; 93005; 99283